=== PATIENT | female | born 1995 | race African-American/Black ===

== ENCOUNTER 2016-07-20 13:01 | Emergency (ER) | payer OTHER, MEDICAID ==
[~2016-07-20] VITALS: Ht 167.6 cm; Wt 62.0 kg
[2016-07-20 13:14] VITALS: BP 103/71
[2016-07-20] MEDS ORDERED: DAYQUIL (13:14)
== END 2016-07-20 17:30 | disposition left against medical advice (07) ==
LOC: ER 16:13
DX: R50.9 Fever, unspecified (principal); Z53.21 Procedure and treatment not carried out due to patient leaving prior to being seen by health care provider